=== PATIENT | female | born 1970 ===

== ENCOUNTER 2017-10-29 11:51 | Emergency (ER) | payer OTHER, MEDICAID ==
[2017-10-29 12:04] VITALS: BMI 25.4
[2017-10-29 12:06] VITALS: BP 120/75; PULSE 84; RESP 20; TEMP 99.4; O2SAT 99
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
[2017-10-29] MEDS ORDERED: Naloxone 0.4 mg/ml Inj (Adult) ONE (15:15)
== END 2017-10-29 15:27 | disposition home or self-care (01) ==
LOC: C.ER 11:51
DX: S33.5XXA Sprain of ligaments of lumbar spine, initial encounter (principal); S23.3XXA Sprain of ligaments of thoracic spine, initial encounter; V49.40XA Driver injured in collision with unspecified motor vehicles in traffic accident, initial encounter